=== PATIENT | male | born 1960 | race Caucasian/White ===

== ENCOUNTER → 2021-06-18 12:58 | Outpatient (REF) | payer MEDICAID, SELFPAY ==
--- NOTE | 2021-06-18 13:05 | CA_ITS ---
Transthoracic Echocardiogram Patient (Last, First, Middle): Lj Medina H Gender: Male Date of : 1960 Age: 60 Procedure Date: 06/18/2021 Procedure Type: Transthoracic Echocardiogram Location: [facility] Height: 187.96 cm Weight: 172.37 kg BSA: 2.85 m2 Heart Rate: bpm BP: 124 / 80 mmHg Front Desk: RITA Riggs MD: Aiden Jay MD Alum Mixer: Vineet Roman MD Symptoms: R06.00 DYSPNEA ON EXERTION R06.02 SOB Study Quality: Technically Difficult/Contrast ECG Rhythm: Sinus Conclusions: - 1. Technically limited study despite use of contrast agent 2. Normal LV systolic function with LVEF of 60 65% with grade 1 diastolic dysfunction 3. Limited visualization of cardiac valves with normal cardiac valvular Doppler Findings Procedure Information Contrast agent, definity, is being given per protocol without apparent complications. Left Ventricle Normal left ventricular size, thickness, and systolic function. The visually estimated ejection fraction is between 60-65%. Spectral Doppler is indicative of an impaired relaxation filling pattern. E/E prime ratio is <8, consistent with normal filling pressures. Evidence suggests grade I (mild) diastolic dysfunction. Right Ventricle The right ventricle was not well visualized. Atria The left atrium was not well visualized. Interatrial shunt cannot be excluded. The right atrium was not well visualized. Aortic Valve The aortic valve was not well visualized. There is no aortic valve stenosis. There is no aortic valve regurgitation. Mitral Valve The mitral valve was not well visualized. There is trace mitral valve regurgitation. There is no mitral valve stenosis. Pulmonic Valve The pulmonic valve was not well visualized. Tricuspid Valve The tricuspid valve was not well visualized. Tricuspid regurgitation envelope is inadequate for calculation of right ventricular systolic pressure. Great Vessels The aorta was not well visualized. The pulmonary artery was not well visualized. Venous The inferior vena cava was not well visualized. Pericardium/Pleural The pericardium was not well visualized. Prior Study Comparison No prior study available for comparison. Measurements 2D Linear Measurements IVSd: 1.15 0.6-0.9/0.6-1.0 cm LVIDd: 4.63 3.9-5.3/4.2-5.9 cm LVIDd Index: 1.62 2.4-3.2/2.2-3.1 cm/m2 LVIDs: 3.26 2.0-3.6 cm LVPWd: 1.10 0.7-1.1 cm LA Diam: 3.40 2.7-3.8/3.0-4.0 cm LAIDs Index: 1.19 1.5-2.3 cm/m2 LV Mass: 235.46 67-162/88-224 g LV Mass Index: 82.62 43-95/49-115 g/m2 LVOT Diam: 2.40 3.0+(-)1.3 cm 2D Systolic Function EF 4C: 68.20 >55% EF 2C: 57.30 >55% EF BiP: 63.70 >55% Mitral Valve MV Pk E: 0.42 MV PK A: 0.77 MV Decel Time: 286.00 E/A: 0.50 E'Lateral: 12.00 E'Medial: 8.81 E/E' Med: 4.70 E/E' Lat: 3.50 PHT: 84.00 MVA PHT: 2.62 Decel [place]: 1.46 Aortic Valve AoV Pk Eran: 1.43 AoV Mn Eran: 1.03 AoV VTI: 0.24 AoV Pk Grad: 8.00 Aov Mn Grad: 5.00 SOHEILA Cont.VTI: 4.20 LVOT LVOT Pk Eran: 1.23 LVOT Mn Eran: 0.93 LVOT VTI: 0.22 LVOT Pk Grad: 6.00 LVOT Mn Grad: 4.00 LVOT Diam: 2.40 LVOT Area: 4.52 Diastolic Function MV Pk E: 0.42 MV Pk A: 0.77 E/A: 0.50 E'Medial: 8.81 E/E' Med: 4.70 E' Laterial: 12.00 E/E' Lat: 3.50 Right Ventricle TAPSE (mm): 17.50 TVS' Eran: 14.10 Tricuspid Valve RA Press: 3.00 Great Vessels Aorta Sinus of Valsalva: 4.00 2.0-3.5 cm Ao Asc: 4.00 2.1-3.4 cm Ao Arch: 3.10 Updated in Other Vendor System with Status of Final Vineet Roman MD electronically signed on 06/20/2021 4:15:16 PM with status of Final
== END ==
LOC: HO.CARD 12:58
PROVIDERS: Visit Provider Family Medicine
DX: R06.00 Dyspnea, unspecified (principal)
CPT/HCPCS: 93306; Q9957